=== PATIENT | female | born 1985 | race Two or more races ===

== ENCOUNTER 2023-06-14 19:22 | Emergency (ER) | payer MEDICAID, OTHER ==
[~2023-06-14] VITALS: Ht 165.1 cm; Wt 54.5 kg
[2023-06-14 19:30] VITALS: BP 122/80; PULSE 110; RESP 20; O2SAT 98
== END 2023-06-14 19:50 | disposition left against medical advice (07) ==
LOC: EDBD 19:22 → ER 19:32
DX: F41.9 Anxiety disorder, unspecified (principal); Z53.21 Procedure and treatment not carried out due to patient leaving prior to being seen by health care provider